=== PATIENT | female | born 2005 | race Caucasian/White ===

== ENCOUNTER 2025-09-04 16:03 | Emergency (ER) | payer SELFPAY ==
[2025-09-04 16:39] LABS: BASOPHILS ABSOLUTE AUTO 0.04 10^3/uL (0.00-0.10); BASOPHILS PERCENT AUTO 0.8 % (0.0-1.0); EOSINOPHILS ABSOLUTE AUTO 0.07 10^3/uL (0.10-0.30); EOSINOPHILS PERCENT AUTO 1.3 % (1.0-3.0); IMMATURE GRAN ABSOLUTE AUTO 0.00 10^3/uL (0.00-0.04); IMMATURE GRAN PERCENT AUTO 0.0 % (0.0-0.4); LYMPHOCYTES ABSOLUTE AUTO 1.60 10^3/uL (1.00-4.00); LYMPHOCYTES PERCENT AUTO 30.3 % (20.0-40.0); MEAN PLATELET VOLUME 9.0 fL (7.4-10.4); MONOCYTES ABSOLUTE AUTO 0.52 10^3/uL (0.10-0.80); MONOCYTES PERCENT AUTO 9.8 % (2.0-8.0); NEUTROPHILS ABSOLUTE AUTO 3.05 10^3/uL (2.50-7.00); NEUTROPHILS PERCENT AUTO 57.8 % (50.0-70.0); PLATELET COUNT,PLT 231 10^3/uL (150-400); RED BLOOD CELL COUNT 4.97 10^6/uL (3.80-5.50); RED CELL DISTRIBUTION WIDTH 12.7 % (11.5-14.5); WHITE BLOOD CELL COUNT,WBC 5.28 10^3/uL (5.00-10.00)
[2025-09-04 16:53] LABS: ALANINE AMINOTRANSFERASE,ALT 60.0 U/L (14-63); ASPARTATE AMNIOTRANSFERASE,AST 23.0 U/L (15-37); BILIRUBIN TOTAL 0.3 mg/dL (0.2-1.0); BLOOD UREA NITROGEN,BUN 10.0 mg/dL (7-18); CARBON DIOXIDE,CO2 26.5 mmol/L (21.0-32.0); CHLORIDE,CL 103.0 mmol/L (98-107); CREATININE 0.83 mg/dL (0.51-1.17); EST CRCL DRUG DOSING (CG) 92.85 mL/min; GLUCOSE RANDOM 85.0 mg/dL (70-140); POTASSIUM,K 4.0 mmol/L (3.5-5.1); PROTEIN TOTAL,TP 6.7 g/dL (6.4-8.2); SODIUM,NA 139.0 mmol/L (136-145)
[2025-09-04 16:54] LABS: ESTIMATED GFR 103.0 mL/min (>=60)
[2025-09-04] MEDS ORDERED: Sodium Chloride 0.9% 10 ML Syringe FLUSH PRN (17:34)
[2025-09-04 17:56] LABS: GLUCOSE,URINE NEGATIVE (NEGATIVE); OCCULT BLOOD,URINE NEGATIVE (NEGATIVE)
[2025-09-04 18:01] LABS: APPEARANCE,URINE SLIGHTLY CLOUDY (CLEAR); EPITHELIAL CELLS,URINE FEW /LPF
[2025-09-04] MEDS: Lactated Ringers 1,000 ML IV ONE (18:09)
[2025-09-04] MEDS: Ketorolac 30 MG/ML SDV IVPUSH ONE (18:53)
== END 2025-09-04 19:15 | disposition home or self-care (01) ==
LOC: KA.ED 16:03
DX: S22.089A Unspecified fracture of T11-T12 vertebra, initial encounter for closed fracture (principal); S22.039A Unspecified fracture of third thoracic vertebra, initial encounter for closed fracture; Z79.899 Other long term (current) drug therapy; Z79.1 Long term (current) use of non-steroidal anti-inflammatories (NSAID); W10.8XXA Fall (on) (from) other stairs and steps, initial encounter; Z91.52 Personal history of nonsuicidal self-harm
CPT/HCPCS: 36415; 71250; 72040; 72131; 80053; 81001; 81025; 84484; 85025; 87086; 87088; 96361; 96374; 99284; 99284-25; J1885; J7120